=== PATIENT | female | born 1965 | race African-American/Black ===

== ENCOUNTER 2018-09-05 15:28 | Inpatient (IN) | payer OTHER ==
[~2018-09-05] VITALS: Ht 152.4 cm; Wt 82.1 kg
[~2018-09-05 15:28] MED LIST: ACYCLOVIR 400400 MG PO; BONINE25 MG PO; LOPRESSOR25 PO; MOBIC15 MG PO; NORVASC5 MG PO; VALIUM5 MG PO
[2018-09-05 15:29] VITALS: BP 136/88
[2018-09-05 16:14] LABS: ABSOLUTE NEUTROPHILS 1.8 thou/uL (1.4-8.2); BASOPHILS 0.9 % (0.0-2.0); EOSINOPHILS 0.5 % (0.0-3.0); HEMATOCRIT 41.2 % (37.0-47.0); HEMOGLOBIN 14.2 gm/dL (12.0-15.0); LYMPHOCYTES 57.6 % (24.0-44.0); MCH 33.2 pg (26.0-34.0); MCHC 34.6 g/dL (28.0-37.0); MCV 96.1 fL (80.0-100.0); MONOCYTES 5.9 % (1.0-8.0); PLATELET COUNT 140 thou/uL (150-400); POLYS 35.1 % (36.0-66.0); RBC 4.29 mil/uL (4.20-5.00); RDW 12.9 % (10.5-14.5); WBC 5.1 thou/uL (4.0-11.0)
[2018-09-05 16:25] LABS: ANION GAP 12 mmol/L (7-16); BUN 12 mg/dL (7-18); CALCIUM 9.2 mg/dL (8.5-10.1); CHLORIDE 106 mmol/L (98-107); CO2 24 mmol/L (21-32); CREATININE 1.1 mg/dL (0.6-1.0); GLUCOSE 92 mg/dL (74-106); POTASSIUM 3.6 mmol/L (3.5-5.1); SODIUM 142 mmol/L (136-145)
[2018-09-05 16:34] LABS: TROPONIN-I <0.06 ng/mL (<0.06)
[2018-09-05 17:34] VITALS: BP 133/87
[2018-09-05 18:03] VITALS: BP 137/89
[2018-09-05 19:45] VITALS: BP 145/85
[2018-09-06 00:54] VITALS: BP 130/84
--- NOTE | 2018-09-06 04:19 | NUR ---
PT MAKING SLOW PROGRESS TOWARDS GOALS. PT REPORTS NO CHEST PAIN WHILE AT REST. SHE DOES STATE THAT SHE GETS CHEST "TIGHTNESS" OVER THE LEFT CHEST WALL/STERNUM UPON SITTING UP AND MOVING TO THE TOILET THEN BACK TO BED ALONG WITH MILD SOA. UPON RETURNING TO BED THE CHEST PAIN AND SOA CEASE.
[2018-09-06 04:34] VITALS: BP 122/77
[2018-09-06 07:30] VITALS: BP 120/83
--- NOTE | 2018-09-06 09:18 | EKG ---
[address] [place] [address] ELECTROCARDIOGRAM REPORT Name: RACHEL LEDBETTER Room #: 355-P ADM IN M.R.#: [id number] Admission: 09/05/18 Attend Phys: Armando Fernandez Discharge: Date of : 65 Report #: [id number] THIS REPORT FOR: //name// [facility] ED Test Date: 2018-09-05 Test Time: 15:40:13 Pat Name: RACHEL LEDBETTER Department: Room: 355 Gender: F Senior Engineering Technician: : 1965 Requested By: Jose Sharif Order Number: [id number] MD: Jose Juan Keys Measurements Intervals Leo Rate: 63 P: 9 MN: 194 QRS: 10 QRSD: 90 T: 9 QT: 462 QTc: 474 Interpretive Statements Sinus rhythm Borderline T wave abnormalities Compared to ECG 12/10/2016 17:27:14 No significant changes Electronically Signed On 09-06-2018 9:18:14 POWDER OPERATOR by Jose Juan Keys [email or web address] <ELECTRONICALLY SIGNED> By: Jose Juan Keys MD, [facility] 09/06/18 0918 1540 [id number] Jose Juan Keys MD, FACC /EPI
[2018-09-06 16:43] VITALS: BP 142/83
[2018-09-06] MEDS ORDERED: TUMS PO (17:11)
[2018-09-06] MEDS ORDERED: PROTONIX40 M1 PO (17:11)
[2018-09-06 17:36] VITALS: BP 142/83
--- NOTE | 2018-09-06 18:35 | NUR ---
PATIENT WILL BE DISCHARGED AT THIS TIME TO HOME. EDUCATED ON NEED TO SEE PCP IF CHEST PAIN PERSISTS. CARDIO WORKOUT HAS SO FAR BEEN NEGATIVE. SHE DENIES PAIN A THIS TIME. RESPIRAITONS EVEN NON LABORED. AMBULATES WITH STEADY. SHE IS GOING TO WALK TO CAR WITH . REFUSED W/C ASSISTANCE.
== END 2018-09-06 18:52 | disposition home or self-care (01) | DRG 313 ==
LOC: ER 15:28 → 3W 17:27 → EROBS 17:27 → 3W 18:04
PROVIDERS: Emergency Medicine; ADMIT Hospitalist
DX: R07.89 Other chest pain (principal); I10 Essential (primary) hypertension; N19 Unspecified kidney failure; Z79.82 Long term (current) use of aspirin; Z79.899 Other long term (current) drug therapy
CPT/HCPCS: 10879

== ENCOUNTER 2019-05-07 10:41 | Emergency (ER) | payer OTHER ==
[~2019-05-07] VITALS: Ht 152.4 cm; Wt 79.4 kg
[~2019-05-07 10:41] MED LIST changes: +PROTONIX40 M1 PO; +TUMS PO
[2019-05-07] MEDS ORDERED: NAPROSYN500 MG PO (12:07)
[2019-05-07] MEDS ORDERED: NORFLEX100 MG PO (12:07)
[2019-05-07 12:23] VITALS: BP 147/85
== END 2019-05-07 12:35 | disposition home or self-care (01) ==
LOC: ER 10:41
DX: S29.012A Strain of muscle and tendon of back wall of thorax, initial encounter (principal); I10 Essential (primary) hypertension; X50.0XXA Overexertion from strenuous movement or load, initial encounter; Y93.89 Activity, other specified; Y92.89 Other specified places as the place of occurrence of the external cause; Y99.8 Other external cause status